=== PATIENT | female | born 1985 | race American Indian/Alaskan Native ===

== ENCOUNTER 2020-05-16 14:44 | Emergency (ER) | payer OTHER ==
[2020-05-16 16:23] VITALS: BP 126/98
[2020-05-16 16:50] LABS: Basophils % (Auto) 1.1 % (0.0-1.8); Eosinophils # (Auto) 0.1 K/mm3 (0.0-0.4); Eosinophils % (Auto) 1.2 % (0.0-4.3); Hematocrit 39.8 % (30.3-42.9); Hemoglobin 13.1 gm/dl (10.1-14.3); Lymphocytes # (Auto) 1.7 K/mm3 (1.2-5.4); Lymphocytes % (Auto) 38.1 % (13.4-35.0); Mean Corpuscular HGB Conc 33 % (30-34); Mean Corpuscular Volume 88 fl (79-97); Monocytes # (Auto) 0.5 K/mm3 (0.0-0.8); Platelet Count 337 K/mm3 (140-440); Red Blood Count 4.53 M/mm3 (3.65-5.03); Red Cell Distribution Width 12.5 % (13.2-15.2)
[2020-05-16 17:06] LABS: Alanine Aminotransferase 7 units/L (7-56); Albumin 4.7 g/dL (3.9-5); BUN/Creatinine Ratio 6; Blood Urea Nitrogen 6 mg/dL (7-17); Calcium 9.3 mg/dL (8.4-10.2); Hemolysis Index 8
--- NOTE | 2020-05-16 18:36 | Ultrasound Report ---
OB ultrasound INDICATION: Vaginal spotting FINDINGS: Right ovary measures 3.7 x 1.6 x 3.07 m. Left ovary measures 3.7 x 1.6 x 2.8 cm. Normal john w and appearance. Uterus measures 9.3 x 4.8 x 5.0 cm. Endometrium measures 12 mm. No IUP is identifie d. No gestational sac. Endometrium is heterogeneous. External os of the cervix is open measuring 0.6 cm. No significant free fluid is identified. IMPRESSION: No intrauterine is identified. The endometrium is thickened measuring 12 mm. Findings could represent very early normal however failed is not excluded. Correlation with nikolas ntitative hCG and follow-up. Signer Name: Luis Hernandez MD Signed: 05/16/2020 6:32 PM Workstation Name: [id number]
--- NOTE | 2020-05-16 19:38 | Emergency Department Report ---
ED Female HPI - General Chief complaint: Vaginal Bleeding Stated complaint: 6 WEEKS PREG BLEEDING Source: patient Mode of arrival: Ambulatory Limitations: No Limitations - History of Present Illness Initial comments: 35-year-old F [place] female [facility] emerge department complaining of having some spotting while being with some vague cramping off and on for the past day. Reports no fever, chills, sweats reports no no dysuria, no trauma, no chest pain, no palpitations. She is due to [facility] [employer] [facility] later this week but was advised to come to the emergency department based on the symptoms. She reports this being her first MD Complaint: vaginal bleeding -: Gradual Radiation: suprapubic Severity: mild Quality: dull Consistency: constant Improves with: none Worsens with: none Are you Now?: Yes Associated Symptoms: vaginal bleeding - Related Data Sexually active: Yes Allergies Allergy/AdvReac Type Severity Reaction Status Date / Time No Known Allergies Allergy Unverified 05/16/20 16:20 ED Review of Systems ROS: Stated complaint: 6 WEEKS PREG BLEEDING Other details as noted in HPI Comment: All other systems reviewed and negative ED Past Medical Hx - Past Medical History Additional medical history: CHRON'S - Surgical History Additional Surgical History: CHRONS ED Physical Exam - General Limitations: No Limitations General appearance: alert, in no apparent distress - Head Head exam: Present: atraumatic, normocephalic - Eye Eye exam: Present: normal appearance, PERRL, EOMI - ENT ENT exam: Present: mucous membranes moist - Neck Neck exam: Present: normal inspection - Respiratory Respiratory exam: Present: normal lung sounds bilaterally. Absent: respiratory distress - Cardiovascular Cardiovascular Exam: Present: regular rate, normal rhythm. Absent: systolic murmur, diastolic murmur, rubs, gallop - GI/Abdominal GI/Abdominal exam: Present: soft, normal bowel sounds - Extremities Exam Extremities exam: Present: normal inspection - Back Exam Back exam: Present: normal inspection - Neurological Exam Neurological exam: Present: alert, oriented X3 - Psychiatric Psychiatric exam: Present: normal affect, normal mood - Skin Skin exam: Present: warm, dry, intact, normal color. Absent: rash ED Course Vital Signs 05/16/20 16:21 Temperature 99.2 F Pulse Rate 85 Respiratory 20 Rate Blood Pressure 126/98 [Right] O2 Sat by Pulse 92 Oximetry ED Medical Decision Making - Lab Data Result diagrams: 05/16/20 16:30 05/16/20 16:30 - Medical Decision Making this patient presents with vaginal bleeding in the first trimester, differential diagnosis includes ectopic , IUP, month threatened/inevitable , along with a completed . Patient is HDS and without a history of coagulopathy or infectious symptoms. The ultrasound does not reveal an IUP but endometrium is thickened and elevated hCG quant Based on exam history and ED work-up patient presentation is not consistent with an ectopic , life-threatening coagulopathy, trauma, serious bacterial infection, central process or other emergency. This is just been advised to follow-up with her [employer] to have her hCG reevaluated which is currently at 190 in 3 to 4 days Critical care attestation.: If time is entered above; I have spent that time in minutes in the direct care of this critically ill patient, excluding procedure time. ED Disposition Clinical Impression: Vaginal bleeding in patient after first trimester Disposition: DC-01 TO HOME OR SELFCARE Is pt being admited?: No Does the pt Need Aspirin: No Condition: Stable Instructions: Activity Restriction During , Threatened Miscarriage Additional Instructions: Please be sure to get your hCG quant reevaluated as we discussed. Referrals: PRIMARY CAREMD [Primary Care Provider] - 3-5 Days [facility] [Provider Group] - 3-5 Days
== END 2020-05-16 19:46 | disposition home or self-care (01) ==
LOC: ED 14:44
DX: O20.8 Other hemorrhage in early pregnancy (principal); Z3A.01 Less than 8 weeks gestation of pregnancy; Z98.890 Other specified postprocedural states
CPT/HCPCS: 36415; 76801; 76817; 80053; 84702; 85025

== ENCOUNTER 2021-10-31 10:27 | Inpatient (IN) | payer BC, OTHER ==
[2021-10-31] MEDS ORDERED: TERBUTALINE 1 MG/1 ML INJ SUB-Q NR (13:16)
[2021-10-31] MEDS ORDERED: miSOPROStol 200 MCG TAB PR NR (13:16)
[2021-10-31] MEDS ORDERED: OXYTOCIN 10 UNIT/1 ML INJ IM NR (13:16)
[2021-10-31] MEDS ORDERED: LIDOCAINE (2%) 20 MG/1 ML VIAL 20 ML MDV INFILTRATI NR (13:16)
--- NOTE | 2021-10-31 13:26 | Ultrasound Report ---
ULTRASOUND OBSTETRIC LIMITED ULTRASOUND BIOPHYSICAL PROFILE INDICATION / CLINICAL INFORMATION: Evaluate well being. COMPARISON: None available. FINDINGS: BREATHING MOVEMENT = 2 GROSS BODY MOVEMENT = 0 TONE = 0 QUALITATIVE AMNIOTIC FLUID VOLUME = 2 TOTAL BIOPHYSICAL SCORE = 4/8 AMNIOTIC FLUID INDEX (cm) = 6.4 PRESENTATION: Cephalic. HEART RATE (beats per minute): 135 ADDITIONAL FINDINGS: None. IMPRESSION: 1. Biophysical Score = 4/8 2. Additional findings as above. Signer Name: Huey Menchaca MD Signed: 10/31/2021 1:22 PM Workstation Name: [email or web address]
[2021-10-31] MEDS ORDERED: ePHEDrine SULFATE 50 MG/1 ML INJ IV PRN ×2 (14:00→19:48)
[2021-10-31] MEDS ORDERED: AMPICILLIN/NS 2 GM/100 ML 2 GM/100 ML BAG IV NR (14:00)
[2021-10-31] MEDS ORDERED: NalbUPHINE 10 MG/1 ML INJ IV PRN (14:00)
[2021-10-31] MEDS ORDERED: ONDANSETRON 4 MG/2 ML INJ IV PRN (14:00)
[2021-10-31] MEDS ORDERED: LOPERAMIDE 2 MG CAP PO NR (14:00)
[2021-10-31] MEDS ORDERED: OXYTOCIN DRIP 30 UNITS/500 ML BAG IV SCH (14:00)
[2021-10-31] MEDS ORDERED: fentaNYL 100 MCG/2 ML INJ IV PRN (14:00)
[2021-10-31] MEDS ORDERED: ACETAMINOPHEN 325 MG TAB PO PRN (14:00)
[2021-10-31] MEDS ORDERED: CARBOPROST TROMETHAMINE 250 MCG/1 ML INJ IM NR (14:00)
[2021-10-31] MEDS ORDERED: METHYLERGONOVINE MALEATE 0.2 MG/ML VIAL IM PRN (14:00)
[2021-10-31] MEDS: LACTATED RINGERS 1,000 ML IV SCH ×2 (15:01→19:01)
[2021-10-31] MEDS: OXYTOCIN DRIP 30 UNITS/500 ML BAG IV SCH ×2 (15:02→17:00)
[2021-10-31 15:38] LABS: Hematocrit 26.5 % (30.3-42.9); Hemoglobin 8.7 gm/dl (10.1-14.3); Mean Corpuscular HGB Conc 33 % (30-34); Mean Corpuscular Volume 73 fl (79-97); Platelet Count 270 K/mm3 (140-440); Red Blood Count 3.61 M/mm3 (3.65-5.03); Red Cell Distribution Width 14.3 % (13.2-15.2)
[2021-10-31] MEDS: AMPICILLIN/NS 1 GM/50 ML 1 GM/50 ML BAG IV SCH ×2 (19:02→23:04)
[2021-10-31] MEDS ORDERED: NALOXONE 0.4 MG/1 ML INJ IV PRN (19:48)
--- NOTE | 2021-10-31 19:50 | Anesthesia Day of Surgery ---
Anesthesia Day of Surgery - Day of Surgery Patient Examined: Yes Patient H&P Reviewed: Yes Patient is NPO: Yes Beta Blockers: No Cardiac Clearance: No Pulmonary Clearance: No Asa's Test: N/A
--- NOTE | 2021-10-31 19:50 | Anesthesia Consultation ---
Anesthesia Consult and Med Hx Date of service: 10/31/21 - Airway Anesthetic Teeth Evaluation: Good ROM Head & Neck: Adequate Mental/Hyoid Distance: Adequate Mallampati Class: Class II Intubation Access Assessment: Probably Good - Pulmonary Exam CTA: Yes - Cardiac Exam Cardiac Exam: RRR - Pre-Operative Health Status ASA Pre-Surgery Classification: ASA2 Proposed Anesthetic Plan: Epidural - Pulmonary Hx Smoking: No Hx Asthma: No Hx Respiratory Symptoms: No SOB: No COPD: No Home Oxygen Therapy: No Hx Pneumonia: No Hx Sleep Apnea: No - Cardiovascular System Hx Hypertension: No Hx Coronary Artery Disease: No Hx Heart Attack/AMI: No Hx Angina: No Hx Percutaneous Transluminal Coronary Angioplasty (PTCA): No Hx Cardia Arrhythmia: No Hx Pacemaker: No Hx Internal Defibrillator: No Hx Valvular Heart Disease: No Hx Heart Murmur: No Hx Peripheral Vascular Disease: No - Central Nervous System Hx Neuromuscular Disorder: No Hx Seizures: No CVA: No Hx Back Pain: No Hx Psychiatric Problems: No - Gastrointestinal Hx Ulcer: No Hx Gastroesophageal Reflux Disease: No - Endocrine Hx Renal Disease: No Hx End Stage Renal Disease: No Hx Cirrhosis: No Hx Liver Disease: No Hx Insulin Dependent Diabetes: No Hx Non-Insulin Dependent Diabetes: No Hx Thyroid Disease: No Hx Hypothyroidism: No Hx Hyperthyroidism: No - Hematic Hx Anemia: No Hx Sickle Cell Disease: No - Other Systems Hx Alcohol Use: No Hx Substance Use: No Hx Cancer: No Hx Obesity: No
--- NOTE | 2021-10-31 19:51 | Progress Note ---
Labor Epidural - Labor Epidural Start Time: 19:28 Stop Time: 19:34 Performed by:: INGRID HUSSEIN Procedure: Epidural Requested for Labor Pain. H&P and PT Chart reviewed and consent obtained. Time out performed and the procedure was explained, all questions answered. Patient was placed in a sitting position with monitors applied. The PTs back was prepped and draped in usual sterile fashion. The Skin was localized with 3 mL of 1% lidocaine at L3-L4. A 17-gauge Touhy epidural needle was advanced to ALMAZ with saline at 7 cm and no blood/CSF was noted via epidural needle. Epidural catheter was advanced to 12 cm. There was negative aspiration for blood and CSF in the catheter and negative response to a test dose of 3 ml 1.5% lidocaine w/ Epi and a sterile dressing was applied Patient tolerated the procedure well and there were no immediate complications noted.
[2021-10-31] MEDS: fentaNYL-BUPIV 2 MCG/ML-0.125% 200 MCG/100 ML BAG EPIDURAL SCH (20:34)
[2021-10-31] MEDS ORDERED: MINERAL OIL 30 ML ORAL LIQD PO PRN (22:00)
[2021-11-01] MEDS: AMPICILLIN/NS 1 GM/50 ML 1 GM/50 ML BAG IV SCH ×2 (03:09→07:12)
[2021-11-01] MEDS: LACTATED RINGERS 1,000 ML IV SCH (03:10)
[2021-11-01] MEDS: fentaNYL-BUPIV 2 MCG/ML-0.125% 200 MCG/100 ML BAG EPIDURAL SCH (05:04)
[2021-11-01] MEDS ORDERED: BUPIVACAINE/PF (0.25%) 2.5 MG/ML 10 ML VIAL INFILTRATI ONE (07:15)
[2021-11-01] MEDS: OXYTOCIN DRIP 30 UNITS/500 ML BAG IV SCH (10:32)
[2021-11-01] MEDS ORDERED: SODIUM CHLORIDE 0.9% 500 ML 500 ML IV NR (11:39)
--- NOTE | 2021-11-01 12:32 | History and Physical Report ---
History of Present Illness Date of examination: 10/31/21 Date of admission: 10/31/21 13:16 Chief complaint: 39+4wks, BPP4/8. History of present illness: YVROSE 11/03/21. Primigravida. Past History Past Medical History: other (Crohns Disease with surgery.) Past Surgical History: colorectal surgery Family/Genetic History: none Social history: no significant social history - Obstetrical History Expected Date of Delivery: 11/03/21 Actual Gestation: 39 Week(s) 5 Day(s) : 1 Medications and Allergies Allergies Allergy/AdvReac Type Severity Reaction Status Date / Time No Known Allergies Allergy Unverified 05/16/20 16:20 Active Meds: Active Medications Acetaminophen (Acetaminophen 325 Mg Tab) 650 mg PO Q4H PRN PRN Reason: Pain, Mild (1-3) Ephedrine Sulfate (Ephedrine Sulfate 50 Mg/1 Ml Inj) 10 mg IV Q2M PRN PRN Reason: Hypotension Fentanyl (Fentanyl 100 Mcg/2 Ml Inj) 100 mcg IV Q2H PRN PRN Reason: Pain,Severe (7-10) LABOR PAIN Oxytocin/Sodium Chloride (Pitocin/Ns 30 Unit/500ml) 30 units in 500 mls @ 2 mls/hr IV TITR ROSEANNA; Protocol Last Titration: 11/01/21 12:00 Dose: 6 ml/hr, 6 mls/hr Lactated Ringer's (Lactated Ringers) 1,000 mls @ 125 mls/hr IV DIRECT ROSEANNA Last Admin: 11/01/21 03:10 Dose: 125 mls/hr Oxytocin/Sodium Chloride (Pitocin/Ns 30 Unit/500ml) 30 units in 500 mls @ 40 mls/hr IV TITR ROSEANNA; Protocol Ampicillin Sodium (Ampicillin/Ns 1 Gm/50 Ml) 1 gm in 50 mls @ 100 mls/hr IV Q4H ROSEANNA; Protocol Last Admin: 11/01/21 07:12 Dose: 100 mls/hr Fentanyl/Bupivacaine/Sodium Chlor (Fentanyl-Bupiv 2 Mcg/Ml-0.125%) 200 mcg in 100 mls @ 12 mls/hr EPIDURAL TITR ROSEANNA; Protocol Last Admin: 11/01/21 05:04 Dose: 12 mls/hr Sodium Chloride (Nacl 0.9% 500 Ml) 500 mls @ 0 mls/hr IV ONCE NR Stop: 11/01/21 20:00 Methylergonovine Maleate (Methylergonovine Maleate 0.2 Mg/Ml Vial) 0.2 mg IM ONCE PRN PRN Reason: Uterine Bleeding Mineral Oil (Mineral Oil 30 Ml Oral Liqd) 30 ml PO QHS PRN PRN Reason: Constipation Last Admin: 11/01/21 12:12 Dose: 30 ml Nalbuphine HCl (Nalbuphine 10 Mg/1 Ml Inj) 10 mg IV Q2H PRN PRN Reason: Pain, Moderate (4-6) Naloxone HCl (Naloxone 0.4 Mg/1 Ml Inj) 0.2 mg IV Q5MIN PRN PRN Reason: Respiratory sedation Ondansetron HCl (Ondansetron 4 Mg/2 Ml Inj) 4 mg IV Q8H PRN PRN Reason: Nausea And Vomiting Review of Systems All systems: negative - Vital Signs Vital signs: Vital Signs Pulse BP Pulse Ox 85 133/82 100 10/31/21 10:56 10/31/21 10:56 10/31/21 10:56 Temp Pulse Resp BP Pulse Ox 98.2 F 98 H 18 125/76 100 11/01/21 09:09 11/01/21 12:23 11/01/21 09:09 11/01/21 11:47 11/01/21 12:23 - Physical Exam Lungs: Positive: Normal air movement Abdomen: Positive: normal appearance, soft, distention, normal bowel sounds. N egative: tenderness Genitourinary (Female): Positive: normal external genitalia, normal perenium Vulva: both: normal Vagina: Positive: normal moisture. Negative: discharge Cervix: Negative: lesion, discharge Uterus: Positive: enlarged, normal contour Anus/Rectum: Positive: normal perianal skin Extremities: Positive: normal Deep Tendon Reflex Grade: Normal +2 - Obstetrical FHR: auscultation normal, other (BPP4/8) Cervical Dilatation: 2 Cervical Effacement Percentage: 85 station: 0 Results Result Diagrams: 10/31/21 Unknown Abnormal lab results 10/31/21 10/31/21 Range/Units Unknown Unknown RBC 3.61 L (3.65-5.03) M/mm3 Hgb 8.7 L (10.1-14.3) gm/dl Hct 26.5 L (30.3-42.9) % MCV 73 L (79-97) fl MCH 24 L (28-32) pg Crossmatch See Detail All other labs normal. Assessment and Plan - Patient Problems (1) H/O biophysical profile Current Visit: Yes Status: Acute Plan to address problem: BPP 06/23. Admitted for induction. (2) with 39 completed weeks gestation Current Visit: Yes Status: Acute
--- NOTE | 2021-11-01 12:38 | Event Note ---
Date: 11/01/21 Stable. 9cm, 0 station. ARM. IUPC placed.
--- NOTE | 2021-11-01 12:43 | Procedure Note ---
OB Delivery Note - Delivery Date of Delivery: 11/01/21 Surgeon: BONNY PUGA Estimated blood loss: 300cc - Vaginal Delivery presentation: vertex Delivery position: OA Intrapartum events: none Delivery induction: oxytocin Delivery augmentation: rupture of membranes, pitocin Delivery monitor: external FHT, external uterine, internal uterine Route of delivery: Delivery placenta: spontaneous, expressed Delivery cord: 3 umbilical vessels Episiotomy: none Delivery laceration: none Anesthesia: epidural - Infant A at 1 minute: 8 at 5 minutes: 9 Infant Gender: Male (7lbs 1oz)
[2021-11-01] MEDS ORDERED: KETOROLAC 30 MG/1 ML INJ IV PRN (13:52)
[2021-11-01] MEDS ORDERED: ONDANSETRON 4 MG/2 ML INJ IV PRN (14:00)
[2021-11-01] MEDS ORDERED: ACETAMINOPHEN 325 MG TAB PO PRN (14:00)
[2021-11-01] MEDS ORDERED: PROMETHAZINE 25 MG TAB PO PRN (14:15)
[2021-11-01] MEDS ORDERED: HYDROcodone/ACETAMINOPHEN 5-325 MG TAB PO PRN (14:15)
[2021-11-01] MEDS ORDERED: PROMETHAZINE 25 MG RECT SUPP PR PRN (14:15)
[2021-11-01] MEDS ORDERED: diphenhydrAMINE 25 MG CAP PO PRN (14:15)
[2021-11-01] MEDS ORDERED: WITCH HAZEL/ GLYCERIN PAD TP PRN (14:15)
[2021-11-01] MEDS ORDERED: LANOLIN/ZINC/DIMETHICONE (LANSINOH) 7 GM TP PRN (14:15)
[2021-11-01] MEDS ORDERED: MAGNESIUM HYDROXIDE (MOM) ORAL LIQD UDC PO PRN (22:00)
[2021-11-02 02:42] LABS: Hematocrit 25.1 % (30.3-42.9)
--- NOTE | 2021-11-02 08:21 | Post Anesthesia Evaluation ---
- Post Anesthesia Evaluation Patient Participated: Yes Airway Patent: Yes Stable Respiratory Function: Yes Nausea/Vomiting: No Temp > 96.8F: Yes Pain Manageable: Yes Adequeate Hydration: Yes Anesthesia Complications: No Block Receding Appropriately: Yes Patient on Ventilator: No
[2021-11-02] MEDS ORDERED: LIDOCAINE-MPF (1%) 10 MG/1 ML VIAL 5 ML INFILTRATI SCH (10:00)
--- NOTE | 2021-11-02 10:54 | Progress Note ---
Assessment and Plan - Patient Problems (1) H/O biophysical profile Current Visit: Yes Status: Resolved (2) with 39 completed weeks gestation Current Visit: Yes Status: Resolved (3) Status post vaginal delivery Current Visit: Yes Status: Acute Plan to address problem: Stable. Subjective - Subjective Date of service: 11/02/21 Principal diagnosis: post day 1. Interval history: YVROSE 11/03/21. Primigravida. 11/02/21 No complaints and wants to go home today. Patient reports: appetite normal, voiding normally, pain well controlled, ambulating normally [place]: doing well Objective - Vital Signs Latest vital signs: Vital Signs Temp Pulse Resp BP BP Pulse Ox Pulse Ox 11/02/21 08:12 98.1 F 64 18 111/69 99 11/02/21 07:52 99 11/02/21 04:30 98.4 F 78 102/79 11/02/21 00:00 98.6 F 77 16 115/78 11/01/21 20:25 99 11/01/21 20:08 98.6 F 81 18 114/73 99 11/01/21 16:26 98.2 F 75 18 112/68 100 11/01/21 16:20 100 11/01/21 13:49 79 123/66 11/01/21 13:48 73 100 11/01/21 13:43 75 99 11/01/21 13:38 79 100 11/01/21 13:33 75 98 11/01/21 13:28 69 98 11/01/21 13:23 82 98 11/01/21 13:18 70 100 11/01/21 13:13 64 100 11/01/21 13:08 81 99 11/01/21 13:03 77 98 11/01/21 12:58 85 99 11/01/21 12:53 70 100 11/01/21 12:48 78 118/70 99 11/01/21 12:43 74 99 11/01/21 12:41 98.3 F 18 11/01/21 12:38 82 100 11/01/21 12:33 89 98 11/01/21 12:28 92 H 99 11/01/21 12:23 98 H 100 11/01/21 12:18 101 H 100 11/01/21 12:13 94 H 100 11/01/21 12:08 101 H 100 11/01/21 12:02 109 H 100 11/01/21 11:57 82 99 11/01/21 11:52 85 100 11/01/21 11:51 63 88 11/01/21 11:47 78 125/76 100 11/01/21 11:42 85 95 11/01/21 11:37 86 100 11/01/21 11:32 62 99 11/01/21 11:27 60 99 11/01/21 11:22 76 99 11/01/21 11:17 68 98 11/01/21 11:12 82 99 11/01/21 11:07 60 99 11/01/21 11:02 64 99 11/01/21 10:57 58 L 98 Intake and Output 11/01/21 11/02/21 11/02/21 23:59 07:59 15:59 Intake Total 200 200 Output Total 1400 Balance -1200 200 Intake: Oral 200 Intake, Free Water 200 Output: Urine 1400 Indwelling Catheter 600 Void 800 Other: Total, Intake Amount 200 Total, Output Amount 800 # Voids Void 1 1 - Exam Lungs: Present: Normal air movement Abdomen: Present: normal appearance, soft, normal bowel sounds Uterus: Present: normal, firm Extremities: Present: normal Deep Tendon Reflex Grade: Normal +2 - Labs Labs: Abnormal lab results 10/31/21 11/02/21 Range/Units Unknown 02:16 Hgb 8.0 L (10.1-14.3) gm/dl Hct 25.1 L (30.3-42.9) % Crossmatch See Detail
--- NOTE | 2021-11-02 10:56 | Discharge Summary ---
Providers - Providers Date of Admission: 10/31/21 13:16 Date of discharge: 11/02/21 Attending physician: BONNY PUGA MD Primary care physician: BONNY PUGA MD Hospitalization Reason for admission: observation, induction of labor, IUP at term, other (BPP 06/23) Delivery: Episiotomy: none Laceration: none Other procedures: none complications: none Discharge diagnosis: IUP at term delivered baby: male Condition at discharge: Good Disposition: 01 HOME / SELF CARE / HOMELESS - Discharge Diagnoses (1) H/O biophysical profile Status: Resolved (2) with 39 completed weeks gestation Status: Resolved (3) Status post vaginal delivery Status: Acute Plan - Provider Discharge Summary Activity: routine, no sex for 6 weeks, no heavy lifting 4 weeks, no strenuous exercise Diet: routine Instructions: routine Additional instructions: [] Smoking cessation referral if applicable(refer to patient education folder for contact #) [] Refer to [facility]'s [facility] Booklet Call your doctor immediately for: * Fever > 100.5 * Heavy vaginal bleeding ( >1 pad per hour) * Severe persistent headache * Shortness of breath * Reddened, hot, painful area to leg or breast * Drainage or odor from incision. * Keep incision clean and dry at all times and follow doctor's instructions regarding bathing/showering - Follow up plan Follow up: BONNY PUGA MD [Primary Care Provider] - 7 Days
[2021-11-02 15:32] VITALS: BP 113/72
== END 2021-11-02 14:35 | disposition home or self-care (01) | DRG 807 ==
LOC: TRG 10:27 → APU 10:28 → UNDOADMOB 13:16 → INTOOBSV 13:16 → OBSVTOIN 13:16 → TRG 13:16 → LD 13:16 → OBSVTOIN 11-01 13:52 → OB 11-01 15:09 → LD 11-01 15:09
PROVIDERS: ADMIT Obstetrics & Gynecology; ATTEND Obstetrics & Gynecology
PROC: 10E0XZZ Delivery of Products of Conception, External Approach (ICD-10-PCS; principal; 2021-11-01)
PROC: 3E0R3BZ Introduction of Anesthetic Agent into Spinal Canal, Percutaneous Approach (ICD-10-PCS; 2021-11-01)
PROC: 00HU33Z Insertion of Infusion Device into Spinal Canal, Percutaneous Approach (ICD-10-PCS; 2021-11-01)
PROC: 3E033VJ Introduction of Other Hormone into Peripheral Vein, Percutaneous Approach (ICD-10-PCS; 2021-11-01)
PROC: 10907ZC Drainage of Amniotic Fluid, Therapeutic from Products of Conception, Via Natural or Artificial Opening (ICD-10-PCS; 2021-11-01)
PROC: 10H07YZ Insertion of Other Device into Products of Conception, Via Natural or Artificial Opening (ICD-10-PCS; 2021-11-01)
DX: O80 Encounter for full-term uncomplicated delivery (principal); Z37.0 Single live birth; Z20.822 Contact with and (suspected) exposure to COVID-19; Z3A.39 39 weeks gestation of pregnancy
CPT/HCPCS: 36415; 76815; 76819; 85014; 85018; 85027; 86850; 86900; 86901; 86920; G0378; J3490; J0290; J2590; J7120; U0003